=== PATIENT | male | born 2000 | race Hispanic/Latino ===

== ENCOUNTER 2024-03-26 06:28 | Emergency (ER) | payer SELFPAY ==
[2024-03-26] MEDS ORDERED: Rabies Vaccine Human 2.5 UNITS VIAL IM ONE (07:15)
[2024-03-26] MEDS ORDERED: Rabies Immune Globulin/PF 300 UNITS/ML VIAL IM SCH (07:45)
== END 2024-03-26 08:12 | disposition home or self-care (01) ==
LOC: CSHERS 06:28
DX: S61.432A Puncture wound without foreign body of left hand, initial encounter (principal); X58.XXXA Exposure to other specified factors, initial encounter; Z23 Encounter for immunization
CPT/HCPCS: 90375; 90471; 90675; 96372

== ENCOUNTER → 2024-04-09 | Day surgery (SDC) | payer SELFPAY | LOC: CSHER/OP 10:49 | PROVIDERS: ATTEND Pathology Anatomic Pathology & Clinical Pathology | DX: Z23 Encounter for immunization (principal) ==